=== PATIENT | male | born 1950 | race Caucasian/White ===

== ENCOUNTER 2019-02-15 16:23 | Emergency (ER) | payer MEDICARE, BC ==
[~2019-02-15] VITALS: Ht 177.8 cm; Wt 104.5 kg
[~2019-02-15 16:23] MED LIST: ASPI-1265 PO; CLIN150C8 PO; DOXA4TAB2 PO; HYDR-4384 PO; LEVO500T2 PO; OMEP40CA13 PO; ONDA8TAB9 PO; PRED10TA PO; VALA500T PO; ZOC40T PO; ZOF4T PO
[2019-02-15 16:26] VITALS: BP 142/80
[2019-02-15] MEDS ORDERED: AZIT-63 PO (17:10)
[2019-02-15] MEDS ORDERED: ALBU8HFA PO (17:10)
== END 2019-02-15 17:29 | disposition home or self-care (01) ==
LOC: ER 16:23
DX: J20.9 Acute bronchitis, unspecified (principal); I11.0 Hypertensive heart disease with heart failure; I50.9 Heart failure, unspecified; E78.00 Pure hypercholesterolemia, unspecified; J44.9 Chronic obstructive pulmonary disease, unspecified; K21.9 Gastro-esophageal reflux disease without esophagitis; G89.29 Other chronic pain; Z90.49 Acquired absence of other specified parts of digestive tract; Z98.890 Other specified postprocedural states; Z60.2 Problems related to living alone; Z88.1 Allergy status to other antibiotic agents; Z79.82 Long term (current) use of aspirin; Z79.899 Other long term (current) drug therapy
CPT/HCPCS: 71045; 99283

== ENCOUNTER 2021-06-05 08:56 | Day surgery (SDC) | payer MEDICARE, BC ==
[~2021-06-05] VITALS: Ht 162.6 cm; Wt 104.0 kg
[~2021-06-05 08:56] MED LIST changes: -OMEP40CA13 PO; +OMEP40CA21 PO
[2021-06-05 09:08] VITALS: BP 143/76
[2021-06-05] MEDS ORDERED: MIDAZolam 1 MG/ML 5ML VIAL ONE (09:27)
[2021-06-05] MEDS ORDERED: fentaNYL/PF 50MCG/1 ML 2ML syringe ONE (09:27)
[2021-06-05] MEDS ORDERED: LIDOcaine Viscous 15ml cup ONE (09:27)
[2021-06-05] MEDS ORDERED: MONT-40 PO (09:45)
[2021-06-05] MEDS ORDERED: DOXA4TAB3 PO (09:45)
[2021-06-05] MEDS ORDERED: FLUT1BLS4 (09:45)
[2021-06-05] MEDS ORDERED: CARV25TA56 PO (09:45)
[2021-06-05] MEDS ORDERED: NITR0.4T SL (09:45)
[2021-06-05] MEDS ORDERED: ALBU1.256 NEB (09:45)
[2021-06-05] MEDS ORDERED: BENZ-38 PO (09:45)
[2021-06-05] MEDS ORDERED: NAPR-435 PO (09:45)
[2021-06-05] MEDS ORDERED: LOSA25TA96 PO (09:45)
[2021-06-05 10:23] VITALS: BP 129/74
[2021-06-05 10:33] VITALS: BP 132/74
[2021-06-05 10:43] VITALS: BP 130/63
[2021-06-05 10:53] VITALS: BP 124/51
== END 2021-06-05 11:00 | disposition home or self-care (01) ==
LOC: GI LAB 08:56
PROVIDERS: ATTEND Internal Medicine Gastroenterology
DX: R13.10 Dysphagia, unspecified (principal); R12 Heartburn; K22.2 Esophageal obstruction; K29.50 Unspecified chronic gastritis without bleeding; K44.9 Diaphragmatic hernia without obstruction or gangrene; G47.30 Sleep apnea, unspecified; I10 Essential (primary) hypertension; Z91.018 Allergy to other foods; Z88.5 Allergy status to narcotic agent; Z88.1 Allergy status to other antibiotic agents; Z79.899 Other long term (current) drug therapy
CPT/HCPCS: 43239; 43249; 88305; C1726; G0500; J2250; J3010; J7040; Z7512; 43450; 99152; A4620